=== PATIENT | male | born 1955 | race Caucasian/White ===

== ENCOUNTER 2024-08-30 08:35 | Outpatient (AMB) | payer OTHER, SELFPAY ==
--- NOTE | 2024-08-30 08:55 | MHC.OFFVIS ---
Vital Signs 08/30/24 08:58 Weight 199 lb BP 151/83 H Blood Pressure Location Lt brachial Position Sitting Pulse 71 Pulse Source Pulse Oximeter Pulse Oximetry (%) 95 Oxygen Delivery Method Room Air Intake Visit Reasons: Chronic low back pain - increased pain Intellectual Property Lawyer Required: No Allergies No Known Allergies Allergy (Verified 08/30/24 08:56) Medication List - Last Reconciled 08/30/24 by Elsa Archer, STRAP CUTTING MACHINE OPERATOR albuterol sulfate 90 mcg/actuation inhalation amlodipine 5 mg PO DAILY apixaban (Eliquis) 5 mg PO BID atorvastatin 10 mg PO DAILY ezetimibe 10 mg PO BEDTIME losartan 50 mg PO DAILY losartan 25 mg PO DAILY metoprolol succinate ER 25 mg PO DAILY oxycodone-acetaminophen 5-325 mg 1 tab PO BID PRN pregabalin 75 mg PO BID tadalafil 20 mg PO HPI Comments Details: Daniel is very pleasant Citizen Of [place]-speaking 68 years old gentleman who presents in my office with complains on pain in the right side of the back with radiation of the pain to the right groin and right side of the hip. He reported that this pain started to bother him long time ago when back in [facility] he was lifting heavy loads of roof covers. He at that time had severe pain in the back with radiation into the left lower extremity. He had some physical therapy and some elastic taping and it helped his pain minimally. Eventually pain became better but now it returned. He reports that he can not sleep normally because of his pain can not do activities of daily living, he can take care of himself but he can not function normally. 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 he reports that weather changes and motions aggravate his pain. Heat applications do not help his pain but cold application make his pain better. In terms of tissue damage he reports his pain as stabbing, lancinating, spreading, radiating, piercing, tight, squeezing, tearing sensation. He had MRI of the lumbar spine in 2019 he reports that he is claustrophobic and can not go into the tunnel MRI he needs open MRI machine. He had last session of physical therapy 2 years ago he reported that physical therapy helped him for 2-3 weeks but then pain returned despite him continuing home exercise program. He received chiropractic manipulation with minimal help improvement. He also received some cortisone injections in the past they were done at his back and helped him very little. His past medical history significant for hypertension paroxysmal atrial fibrillation he had radiofrequency ablation of the pathological reentry. Despite this he still suffers from atrial fibrillation and he is on metoprolol and Eliquis. For his pain he is prescribed Percocet 5/325 as needed. His past surgical history is shoulder arthroscopy on the left and pathological nodules ablation of the heart. He is allergic to Novocain/procaine but can tolerate lidocaine and other amide local anesthetics. Review of Systems Const All systems reviewed & are unremarkable except as noted in HPI and below Reports no additional complaints ENT Reports Normal hearing present Card Reports as per HPI Resp Reports no additional complaints GI Reports no additional complaints Reports no additional complaints Musc Reports as per HPI Neuro Reports no additional complaints, Reports Normal hearing present, Denies Abnormal speech present, Denies confusion and Denies Sensory deficit (Neuro) Psych Reports no additional complaints and Denies confusion Physical Exam Vital Signs: Last Vital Signs Pulse 71 08/30/24 08:58 BP 151/83 H 08/30/24 08:58 Pulse Ox 95 08/30/24 08:58 Oxygen Delivery Method Room Air 08/30/24 08:58 Const General: no acute distress; No confusion Orientation/consciousness: patient oriented x3 and No confusion Eyes General: appearance normal, both eyes and all related structures Pupils: Equal, round and reactive pupils present EOM: EOMs intact bilaterally Neck Neck: Yes full ROM Chest Chest palpation & inspection: normal inspection of the chest Resp Effort & Inspection: normal respiratory effort, able to speak in complete sentences, normal respiratory pattern, no audible wheezes and no cough Cardio Jugular venous distension: no JVD GI Inspection: Yes normal to inspection Back/Spine/Pelvis Other: There is tenderness on palpation in paraspinal spinal regions of the lower lumbar spine, there is tenderness on palpation in the midline sacral bone. There is severe tenderness on palpation in projection of the right sacroiliac joint. Siddharth test is positive on the right, pelvic compression test is positive on the right, pelvic distraction test is positive on the right. Flexing forward aggravates his pain as well as flexing backwards. Lateral rotation of the right hip aggravates pain in the groin as well as medial rotation of the right hip. Neuro General: patient oriented x3, gait normal and No confusion Cranial nerves: Yes CN's II-XII intact bilaterally, Yes Equal, round and reactive pupils present, Yes Normal hearing present and Yes Ability to bilaterally elevate shoulders present Speech: No Abnormal speech present Gait exam (Neuro): Normal gait present Motor exam (neuro): 5/5 motor strength present throughout Sensory Exam: No Sensory deficit (Neuro) Extrem General: No pedal edema Psych Speech and movement: Normal speech and movement present Affect: normal affect Attitude: cooperative Thought process: Normal thought process present Thought content: Normal thought content present Insight: Good insight present (Psych) Judgement: Good judgement present (Psych) Assessment & Plan Assessment & Plan (1) Sacroiliitis: Code(s): M46.1 - Sacroiliitis, not elsewhere classified Category: Medical (2) Sacroiliac joint dysfunction of right side: Code(s): M53.3 - Sacrococcygeal disorders, not elsewhere classified Category: Medical (3) Arthritis of right hip: Code(s): M16.11 - Unilateral primary osteoarthritis, right hip Category: Medical (4) Right hip pain: Code(s): M25.551 - Pain in right hip Category: Medical (5) Chronic pain syndrome: Code(s): G89.4 - Chronic pain syndrome Category: Medical Plan I will send this patient for the x-ray of the pelvis and evaluation of the hip joint. I will schedule this patient for diagnostic right sacroiliac joint injection. I will schedule him for therapeutic intra-articular hip steroid injection after right sacroiliac joint injection will be performed. By that time the evaluation of the hip x-ray and pelvic x-ray will come back and we will decide treatment modalities we will employed to help this patient. Orders: Orders XR pelvis min 3V Today G89.4 - Chronic pain syndrome, M16.11 - Unilateral primary osteoarthritis, right hip, M25.551 - Pain in right hip, M46.1 - Sacroiliitis, not elsewhere classified, M53.3 - Sacrococcygeal disorders, not elsewhere classified Coding Level of Care Code New Pt Level 3 (58667) Diagnoses Sacroiliitis M46.1 Sacroiliac joint dysfunction of right side M53.3 Arthritis of right hip M16.11 Right hip pain M25.551 Chronic pain syndrome G89.4
[2024-08-30 08:58] VITALS: BP 151/83; PULSE 71; O2SAT 95
== END 2024-08-30 09:15 | disposition home or self-care (01) ==
PROVIDERS: PCP Internal Medicine; Referring Provider Internal Medicine; Visit Provider Anesthesiology
DX: M46.1 Sacroiliitis, not elsewhere classified (principal); M53.3 Sacrococcygeal disorders, not elsewhere classified; M16.11 Unilateral primary osteoarthritis, right hip; M25.551 Pain in right hip; G89.4 Chronic pain syndrome
CPT/HCPCS: 99203

== ENCOUNTER 2024-08-30 08:35 | Outpatient (REF) | payer OTHER, SELFPAY ==
--- NOTE | ~2024-08-30 | XR_ITS ---
CLINICAL HISTORY: M46.1 - Sacroiliitis, not elsewhere classified PELVIS, THREE VIEWS FINDINGS: Bony structures are intact with normal alignment. Sacroiliac joints are symmetric and normal in appearance. Regional soft tissue structures are unremarkable. IMPRESSION: Unremarkable exam. This document has been electronically signed by: Jimmy Gracia MD on 08/30/2024 20:58:58
== END 2024-08-30 08:36 | disposition home or self-care (01) ==
LOC: HO.XRAY 08:35
PROVIDERS: PCP Internal Medicine; Referring Provider Internal Medicine; Visit Provider Anesthesiology
DX: M46.1 Sacroiliitis, not elsewhere classified (principal); M53.3 Sacrococcygeal disorders, not elsewhere classified; M16.11 Unilateral primary osteoarthritis, right hip; M25.551 Pain in right hip; G89.4 Chronic pain syndrome
CPT/HCPCS: 72190; 99202

== ENCOUNTER → 2024-08-30 09:34 | Outpatient (BNV) | payer OTHER, SELFPAY | PROVIDERS: PCP Internal Medicine; Referring Provider Internal Medicine; Visit Provider Specialist | DX: M46.1 Sacroiliitis, not elsewhere classified (principal) | CPT/HCPCS: 72190 ==

== ENCOUNTER 2024-09-19 10:38 | Outpatient (AMB) | payer OTHER, SELFPAY ==
[2024-09-19 10:45] VITALS: BP 131/72; PULSE 62; O2SAT 98; BMI 30.9
--- NOTE | 2024-09-19 10:45 | A.OFFVIS_ITS ---
Vital Signs 09/19/24 10:45 Height 5 ft 7 in Weight 197 lb BMI 30.9 BP 131/72 Blood Pressure Location Lt brachial Position Sitting Pulse 62 Pulse Source Pulse Oximeter Pulse Oximetry (%) 98 Oxygen Delivery Method Room Air Intake Visit Reasons: X-RAY FOLLOW UP/RESULTS Geospatial Image Analyst Required: No Allergies No Known Allergies Allergy (Verified 09/19/24 10:45) Medication List - Last Reconciled 09/19/24 by Elsa Archer, SKIAGRAPHER albuterol sulfate 90 mcg/actuation inhalation amlodipine 5 mg PO DAILY apixaban (Eliquis) 5 mg PO BID atorvastatin 10 mg PO DAILY ezetimibe 10 mg PO BEDTIME losartan 50 mg PO DAILY losartan 25 mg PO DAILY metoprolol succinate ER 25 mg PO DAILY oxycodone-acetaminophen 5-325 mg 1 tab PO BID PRN pregabalin 75 mg PO BID tadalafil 20 mg PO HPI Comments Details: Daniel is back in my office to discuss the results of the pelvis x-ray. 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 Nevertheless I think the most of the problem of this patient is right sacroiliitis. His right sacroiliac joint diagnostic injection was approved. However patient is not very eager to have the injection done. He wants me to start him on chronic opioid therapy. I explained to him that dissipation in chronic opioid therapy in this office includes participation in interventional pain management. I gave him opioid contract, opioid consent, and opioid information page to read. He has a relative who is fluent in both Haitian and Welsh and can not interpret the contract for him. If he decides to go for this procedure and become a member of chronic opioid program he can give us a call and schedule an appointment. Prior: very pleasant Haitian-speaking 68 years old gentleman who presents in my office with complains on pain in the right side of the back with radiation of the pain to the right groin and right side of the hip. He reported that this pain started to bother him long time ago when back in [facility] he was lifting heavy loads of roof covers. He at that time had severe pain in the back with radiation into the left lower extremity. He had some physical therapy and some elastic taping and it helped his pain minimally. Eventually pain became better but now it returned. Heat applications do not help his pain but cold application make his pain better. In terms of tissue damage he reports his pain as stabbing, lancinating, spreading, radiating, piercing, tight, squeezing, tearing sensation. He had MRI of the lumbar spine in 2019 he reports that he is claustrophobic and can not go into the tunnel MRI he needs open MRI machine. He had last session of physical therapy 2 years ago he reported that physical therapy helped him for 2-3 weeks but then pain returned despite him continuing home exercise program. He received chiropractic manipulation with minimal help improvement. He also received some cortisone injections in the past they were done at his back and helped him very little. His past medical history significant for hypertension paroxysmal atrial fibrillation he had radiofrequency ablation of the pathological reentry. Despite this he still suffers from atrial fibrillation and he is on metoprolol and Eliquis. For his pain he is prescribed Percocet 5/325 as needed. His past surgical history is shoulder arthroscopy on the left and pathological nodules ablation of the heart. He is allergic to Novocain/procaine but can tolerate lidocaine and other amide local anesthetics. Review of Systems Const All systems reviewed & are unremarkable except as noted in HPI and below ENT Reports Normal hearing present Neuro Reports Normal hearing present, Denies Abnormal speech present, Denies confusion and Denies Sensory deficit (Neuro) Psych Denies confusion Physical Exam Vital Signs: Last Vital Signs Pulse 62 09/19/24 10:45 BP 131/72 09/19/24 10:45 Pulse Ox 98 09/19/24 10:45 Oxygen Delivery Method Room Air 09/19/24 10:45 BMI result Body Mass Index 30.9 Const General: no acute distress; No confusion Orientation/consciousness: patient oriented x3 and No confusion Eyes General: appearance normal, both eyes and all related structures Pupils: Equal, round and reactive pupils present EOM: EOMs intact bilaterally Neck Neck: Yes full ROM Chest Chest palpation & inspection: normal inspection of the chest Resp Effort & Inspection: normal respiratory effort, able to speak in complete sentences, normal respiratory pattern, no audible wheezes and no cough Cardio Jugular venous distension: no JVD GI Inspection: Yes normal to inspection Back/Spine/Pelvis Other: There is tenderness on palpation in paraspinal spinal regions of the lower lumbar spine, there is tenderness on palpation in the midline sacral bone. There is severe tenderness on palpation in projection of the right sacroiliac joint. Siddharth test is positive on the right, pelvic compression test is positive on the right, pelvic distraction test is positive on the right. Flexing forward aggravates his pain as well as flexing backwards. Lateral rotation of the right hip aggravates pain in the groin as well as medial rotation of the right hip. Neuro General: patient oriented x3, gait normal and No confusion Cranial nerves: Yes CN's II-XII intact bilaterally, Yes Equal, round and reactive pupils present, Yes Normal hearing present and Yes Ability to bilaterally elevate shoulders present Speech: No Abnormal speech present Gait exam (Neuro): Normal gait present Motor exam (neuro): 5/5 motor strength present throughout Sensory Exam: No Sensory deficit (Neuro) Extrem General: No pedal edema Psych Speech and movement: Normal speech and movement present Affect: normal affect Attitude: cooperative Thought process: Normal thought process present Thought content: Normal thought content present Insight: Good insight present (Psych) Judgement: Good judgement present (Psych) Assessment & Plan Assessment & Plan (1) Sacroiliitis: Code(s): M46.1 - Sacroiliitis, not elsewhere classified Category: Medical (2) Sacroiliac joint dysfunction of right side: Code(s): M53.3 - Sacrococcygeal disorders, not elsewhere classified Category: Medical (3) Arthritis of right hip: Code(s): M16.11 - Unilateral primary osteoarthritis, right hip Category: Medical (4) Right hip pain: Code(s): M25.551 - Pain in right hip Category: Medical (5) Chronic pain syndrome: Code(s): G89.4 - Chronic pain syndrome Category: Medical Plan Discussion is as above. If he wants to become a member of chronic opioid therapy program he would need to realize that program would involve injections and interventions. He received today opioid consent, opioid contract, opioid information page. After reading those pages he will give us a call and schedule an appointment with us. I warned him that we will not be able to prescribe short intermittent pills for him. He would need to visit us once a month for pill counts. He will be subject of urine drug screens and subject of mass pat evaluation. Patient expressed the understanding. Patient Instructions: I here by testify that I spent 35 minutes in conversation with this patient as well as evaluating his images reading his diagnostic records planning his care and organizing this note. Coding Level of Care Code Est Pt Level 4 (22335) Diagnoses Sacroiliitis M46.1 Sacroiliac joint dysfunction of right side M53.3 Arthritis of right hip M16.11 Right hip pain M25.551 Chronic pain syndrome G89.4
== END 2024-09-19 11:24 | disposition home or self-care (01) ==
PROVIDERS: PCP Internal Medicine; Visit Provider Anesthesiology
DX: M46.1 Sacroiliitis, not elsewhere classified (principal); M53.3 Sacrococcygeal disorders, not elsewhere classified; M16.11 Unilateral primary osteoarthritis, right hip; M25.551 Pain in right hip; G89.4 Chronic pain syndrome
CPT/HCPCS: 99214

== ENCOUNTER → 2024-09-19 10:38 | Outpatient (BNVA) | payer OTHER, SELFPAY | PROVIDERS: PCP Internal Medicine; Visit Provider Anesthesiology | DX: M46.1 Sacroiliitis, not elsewhere classified (principal); M53.3 Sacrococcygeal disorders, not elsewhere classified; M16.11 Unilateral primary osteoarthritis, right hip; M25.551 Pain in right hip; G89.4 Chronic pain syndrome | CPT/HCPCS: 99212 ==